=== PATIENT | male | born 1960 | race Caucasian/White ===

== ENCOUNTER 2024-09-27 21:31 | Emergency (ER) | payer BC ==
[2024-09-27 22:06] LABS: BASOPHILS ABSOLUTE AUTO 0.02 10^3/uL (0.00-0.10); BASOPHILS PERCENT AUTO 0.4 % (0.0-1.0); EOSINOPHILS ABSOLUTE AUTO 0.26 10^3/uL (0.10-0.30); EOSINOPHILS PERCENT AUTO 5.0 % (1.0-3.0); IMMATURE GRAN ABSOLUTE AUTO 0.00 10^3/uL (0.00-0.04); IMMATURE GRAN PERCENT AUTO 0.0 % (0.0-0.4); LYMPHOCYTES ABSOLUTE AUTO 1.22 10^3/uL (1.00-4.00); LYMPHOCYTES PERCENT AUTO 23.4 % (20.0-40.0); MEAN PLATELET VOLUME 8.1 fL (7.4-10.4); MONOCYTES ABSOLUTE AUTO 0.47 10^3/uL (0.10-0.80); MONOCYTES PERCENT AUTO 9.0 % (2.0-8.0); NEUTROPHILS ABSOLUTE AUTO 3.24 10^3/uL (2.50-7.00); NEUTROPHILS PERCENT AUTO 62.2 % (50.0-70.0); PLATELET COUNT,PLT 257 10^3/uL (150-400); RED BLOOD CELL COUNT 4.55 10^6/uL (4.50-6.00); RED CELL DISTRIBUTION WIDTH 14.5 % (11.5-14.5); WHITE BLOOD CELL COUNT,WBC 5.21 10^3/uL (5.00-10.00)
[2024-09-27] MEDS ORDERED: VANCOmycin 1.25 GM/250 ML 1.25 GM in Premix Bag 1 BAG IV SCH (22:30)
[2024-09-27 22:32] LABS: BLOOD UREA NITROGEN,BUN 22.0 mg/dL (7-18); CARBON DIOXIDE,CO2 23.9 mmol/L (21.0-32.0); CHLORIDE,CL 105.0 mmol/L (98-107); CREATININE 0.94 mg/dL (0.51-1.17); EST CRCL DRUG DOSING (CG) 89.72 mL/min; ESTIMATED GFR 91.0 mL/min (>=60); GLUCOSE RANDOM 105.0 mg/dL (70-140); POTASSIUM,K 3.9 mmol/L (3.5-5.1); SODIUM,NA 141.0 mmol/L (136-145)
[2024-09-27] MEDS: VANCOMYCIN 2 GM/400 ML ONE (22:38)
[2024-09-28 01:07] VITALS: BP 137/77; PULSE 74
== END 2024-09-28 01:25 | disposition home or self-care (01) ==
LOC: KA.ED 21:31
DX: E10.621 Type 1 diabetes mellitus with foot ulcer (principal); L97.525 Non-pressure chronic ulcer of other part of left foot with muscle involvement without evidence of necrosis
CPT/HCPCS: 36415; 73620-50; 80048; 85025; 86140; 96365; 96366; 96375; 99283; 99283-25; J0696; J3373; J7040